=== PATIENT | male | born 1985 | race African-American/Black ===

== ENCOUNTER 2018-06-15 14:12 | Emergency (ER) | payer MEDICAID ==
[~2018-06-15] VITALS: Ht 182.9 cm; Wt 95.3 kg
[2018-06-15] MEDS ORDERED: HYDROCHLOROTHIA25 MG ORAL (14:24)
[2018-06-15 14:26] VITALS: BP 176/113
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
--- NOTE | 2018-06-15 14:59 | NUR ---
ED Nurse Note: pt went down for xray
--- NOTE | 2018-06-15 15:12 | NUR ---
ED Nurse Note: pt back from xray, remains stable
[2018-06-15] MEDS ORDERED: IBUPROFEN600 MG ORAL (15:40)
[2018-06-15 15:44] VITALS: BP 176/113
--- NOTE | 2018-06-15 15:45 | NUR ---
ED Nurse Note: A/Ox4. Pt is cleared by Dr. Heidi ALVAREZ instruction and prescription given, pt verbalized understanding. ID wrist band and IV removed. All belongings given to pt. Pt denies any pain at this time. Pt ambulated out of ER with steady gait. Sling applied by Sandro, EMT
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
--- NOTE | 2018-06-15 18:30 | Diagnostic Imaging Report ---
Indication: Left shoulder pain, trauma Technique: 3 views of the left shoulder Comparison: none Findings: No acute fractures. No dislocations. The joint spaces are preserved. Impression: Negative
== END 2018-06-15 15:44 | disposition home or self-care (01) ==
LOC: EMR 14:35
DX: S49.92XA Unspecified injury of left shoulder and upper arm, initial encounter (principal); X50.9XXA Other and unspecified overexertion or strenuous movements or postures, initial encounter; Y92.89 Other specified places as the place of occurrence of the external cause; I10 Essential (primary) hypertension
CPT/HCPCS: 99283